=== PATIENT | male | born 1945 | race Caucasian/White ===

== ENCOUNTER 2017-11-18 13:03 | Day surgery (SDC) | payer OTHER ==
[~2017-11-18] VITALS: Ht 172.7 cm; Wt 80.0 kg
[~2017-11-18 13:03] MED LIST: ASPI81CH; AZAT50 PO; ETOD400; GABA100 PO; GLIM4 PO; LOSA25 PO; METF500C PO; Omeprazole20 M1; Omeprazole20 M1 PO; SIMV80 PO
[2018-07-18] MEDS ORDERED: GLYXAMBI 10 MG1 EACH PO (14:52)
[2018-07-18] MEDS ORDERED: [UNRECOGNIZED DRUG - OTHER] PO (17:34)
[2018-07-21] MEDS ORDERED: HYDR1TAB94 PO (10:19)
== END 2017-11-18 15:40 | disposition home or self-care (01) ==
LOC: ORSCSDS 13:03
PROVIDERS: Internal Medicine Gastroenterology
PROC: 0DJD8ZZ Inspection of Lower Intestinal Tract, Via Natural or Artificial Opening Endoscopic (ICD-10-PCS; principal; 2017-11-18 14:15)
DX: Z12.11 Encounter for screening for malignant neoplasm of colon (principal); K57.30 Diverticulosis of large intestine without perforation or abscess without bleeding; Z80.0 Family history of malignant neoplasm of digestive organs; E11.9 Type 2 diabetes mellitus without complications; M35.2 Behcet's disease; Z79.82 Long term (current) use of aspirin; Z79.84 Long term (current) use of oral hypoglycemic drugs; Z79.899 Other long term (current) drug therapy
CPT/HCPCS: 82947; J7120

== ENCOUNTER 2021-06-07 10:10 | Emergency (ER) | payer OTHER ==
[~2021-06-07] VITALS: Ht 172.7 cm; Wt 86.2 kg
[~2021-06-07 10:10] MED LIST changes: +GLYXAMBI 10 MG1 EACH PO; +HYDR1TAB94 PO; +[UNRECOGNIZED DRUG - OTHER] PO
[2021-06-07 10:54] LABS: BASOPHILS ABSOLUTE AUTO 0.01 K/mm3 (0.00-0.23); BASOPHILS PERCENT AUTO 0 % (0-2); EOSINOPHILS PERCENT AUTO 0 % (0-6); Hematocrit 38.1 % (37.0-53.0); Hemoglobin 13.2 g/dL (13.5-17.5); IMMATURE GRAN ABSOLUTE AUTO 0.01 K/mm3 (0.00-0.10); IMMATURE GRAN PERCENT AUTO 0 % (0-1); LYMPHOCYTES ABSOLUTE AUTO 0.74 K/mm3 (0.84-5.20); LYMPHOCYTES PERCENT AUTO 23 % (21-46); MONOCYTES ABSOLUTE AUTO 0.18 K/mm3 (0.16-1.47); MONOCYTES PERCENT AUTO 6 % (4-13); Mean Corpuscular HGB Conc 34.6 g/dL (31.5-36.5); Mean Corpuscular Volume 93 fL (80-100); Mean Platelet Volume 10.9 fL (9.1-12.4); NEUTROPHILS ABSOLUTE AUTO 2.28 K/mm3 (1.96-9.15); NEUTROPHILS PERCENT AUTO 71 % (41-73); Platelet Count 124 K/mm3 (150-400); RDW Coefficient Variation 14.9 % (11.7-14.2); RDW Standard Deviation 51.1 fL (35.1-46.3); Red Blood Cell Count 4.12 M/mm3 (4.30-5.90); White Blood Cell Count 3.22 K/mm3 (4.00-11.30)
[2021-06-07] MEDS ORDERED: METF500 PO (10:57)
[2021-06-07] MEDS ORDERED: OMEP20ER PO (10:58)
[2021-06-07] MEDS ORDERED: ETOD400 PO (10:58)
[2021-06-07] MEDS ORDERED: AZAT50 PO (11:00)
[2021-06-07] MEDS ORDERED: GLIM2 PO (11:00)
[2021-06-07] MEDS ORDERED: FOLI1 PO ×2 (11:01→11:07)
[2021-06-07] MEDS ORDERED: TUMS500 MG PO (11:03)
[2021-06-07] MEDS ORDERED: FISH OIL 1,0001 EAC8 PO (11:04)
[2021-06-07] MEDS ORDERED: ASPI81CH (11:05)
[2021-06-07] MEDS ORDERED: [UNRECOGNIZED DRUG - CODE] SL (11:06)
[2021-06-07] MEDS ORDERED: ASPI81CH PO (11:06)
[2021-06-07] MEDS ORDERED: MAGNESIUM OXID500 MG PO (11:08)
[2021-06-07] MEDS ORDERED: THERA-D2000 UNIT PO (11:10)
[2021-06-07] MEDS ORDERED: LOSARTAN-HCTZ1 EACH PO ×2 (11:10→11:16)
[2021-06-07] MEDS ORDERED: SIMV80 PO (11:12)
[2021-06-07] MEDS ORDERED: PROBIOTIC1 EA13 PO (11:12)
[2021-06-07] MEDS ORDERED: GABA400 PO (11:12)
[2021-06-07] MEDS ORDERED: INSULANI INJ (11:13)
[2021-06-07] MEDS ORDERED: MERIBIN5 MG PO (11:14)
[2021-06-07 11:17] LABS: Alanine Aminotransfer (ALT/SGP 129 U/L (12-78); Albumin/Globulin Ratio 0.8 (0.8-1.8); Alk Phos 68 U/L (50-136); Anion Gap 9 mmol/L (6-16); Aspartate Aminotrans (AST/SGOT 151 U/L (12-37); Blood Urea Nitrogen 11 mg/dL (8-24); Bun/Creatinine Ratio 11.6 (12.0-20.0); CO2, Blood 21 mmol/L (21-32); Calcium, Blood 7.7 mg/dL (8.5-10.1); Chloride, Blood 97 mmol/L (98-108); Creatinine, Blood 0.95 mg/dL (0.60-1.20); Globulin, Blood 3.7 g/dL (2.2-4.0); Glomerular Filtration Rate >60 (60-); Glucose, Blood 188 mg/dL (70-99); Potassium, Blood 4.2 mmol/L (3.5-5.5); Sodium, Blood 127 mmol/L (136-145); Total Protein, Blood 6.7 g/dL (6.4-8.2); Troponin I 0.035 ng/mL (0.000-0.040)
[2021-06-07] MEDS ORDERED: Allergy Relief10 M1 PO (11:19)
[2021-06-07] MEDS ORDERED: CINNAMON OIL (11:20)
[2021-06-07] MEDS ORDERED: DEXA4 PO (13:39)
== END 2021-06-07 14:00 | disposition home or self-care (01) ==
LOC: ER 10:10
PROVIDERS: Emergency Medicine Emergency Medical Services
DX: U07.1 COVID-19 (principal); Z88.0 Allergy status to penicillin; Z88.2 Allergy status to sulfonamides; Z88.8 Allergy status to other drugs, medicaments and biological substances; Z79.899 Other long term (current) drug therapy; Z79.82 Long term (current) use of aspirin; Z79.4 Long term (current) use of insulin
CPT/HCPCS: 36415; 70450; 71045; 80053; 83690; 83880; 84484; 85025; 93005; 93010; 99285-25; J1100; M0243; Q0243